=== PATIENT | female | born 1955 | race Caucasian/White ===

== ENCOUNTER 2016-11-30 16:14 | Emergency (ER) | payer SELFPAY ==
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
== END 2016-11-30 17:45 | disposition home or self-care (01) ==
LOC: ER 16:14
DX: S80.11XA Contusion of right lower leg, initial encounter (principal); M54.42 Lumbago with sciatica, left side; I10 Essential (primary) hypertension; F17.210 Nicotine dependence, cigarettes, uncomplicated; V43.52XA Car driver injured in collision with other type car in traffic accident, initial encounter; Y92.411 Interstate highway as the place of occurrence of the external cause
CPT/HCPCS: 72190; 99283; 99284